=== PATIENT | female | born 1950 | race Caucasian/White ===

== ENCOUNTER 2018-10-15 10:20 | Inpatient (IN) | payer OTHER ==
[~2018-10-15] VITALS: Ht 157.5 cm; Wt 44.5 kg
[2018-10-15 10:31] VITALS: BP 135/67
[2018-10-15 11:20] LABS: BE -2.9 mmol/L (-2 to +3); PO2 81.8 mmHg (75.0-100.0); pH 7.438 (7.340-7.450)
[2018-10-15 11:21] LABS: ABSOLUTE LYMPHOCYTES 0.6 thou/uL (0.8-5.3); ABSOLUTE MONOCYTES 0.9 thou/uL (0.0-1.2); ABSOLUTE NEUTROPHILS 8.7 thou/uL (1.6-8.1); BASOPHILS 0.2 %; EOSINOPHILS 0.1 %; HEMATOCRIT 37.6 % (37.0-47.0); HEMOGLOBIN 12.7 gm/dL (12.0-15.0); LYMPHOCYTES 5.6 %; MCH 31.7 pg (26.0-34.0); MCHC 33.9 g/dL (28.0-37.0); MCV 93.4 fL (80.0-100.0); MONOCYTES 9.1 %; MPV 9.2 fl. (7.2-11.1); NUCLEATED RBCS 0 /100WBC; PLATELET COUNT* 197 thou/uL (150-400); RBC 4.02 mil/uL (4.20-5.00); RDW-CV 14.9 % (10.5-14.5); WBC 10.3 thou/uL (4.0-11.0)
[2018-10-15 11:23] LABS: ANION GAP 12 mmol/L (7-16); BUN 22 mg/dL (7-18); CHLORIDE 99 mmol/L (98-107); CO2 23 mmol/L (21-32); CREATININE 0.8 mg/dL (0.6-1.3); GLUCOSE 109 mg/dL (70-99); POTASSIUM 3.9 mmol/L (3.5-5.1); SODIUM 134 mmol/L (136-145)
[2018-10-15 11:35] LABS: ALKALINE PHOSPHATASE 120 U/L (46-116); NT-PRO BRAIN NAT PEPTIDE 308 pg/mL (<300); SGOT 27 U/L (15-37); SGPT 40 U/L (30-65); TOTAL BILIRUBIN 0.6 mg/dL (<0.1-1.0); TOTAL PROTEIN 7.3 g/dL (6.4-8.2); TROPONIN-I LEVEL <0.06 ng/mL (<0.06)
--- NOTE | 2018-10-15 17:41 | EKG ---
[place] [address] ELECTROCARDIOGRAM REPORT Name: ABDELRAHMAN VARMA Room: [place] [address] ADM IN M.R.#: [id number] Admission: 10/15/18 Attend Phys: Marylou Portillo Discharge: Date of : 48 Report #: [id number] THIS REPORT FOR: //name// [facility] ED Test Date: 2018-10-15 Test Time: 11:20:22 Pat Name: ABDELRAHMAN VARMA Department: Room: [facility] Gender: F Culinary Art Teacher: Florian FOSTER : 1950 Requested By: Cierra Green Order Number: [id number] MD: Zach Kruse Measurements Intervals [place] Rate: 91 P: -18 NC: 102 QRS: 65 QRSD: 86 T: 54 QT: 358 QTc: 441 Interpretive Statements Sinus rhythm Short NC interval No previous ECG available for comparison Electronically Signed On 10-15-2018 17:41:24 CDT by Zach Kruse [email or web address] <ELECTRONICALLY SIGNED> By: Zach Kruse MD, [facility] 10/15/18 1741 1120 1120 Zach Kruse MD, FACC /EPI
[2018-10-15 18:05] VITALS: BP 106/68
[2018-10-15 18:22] VITALS: BP 112/81
--- NOTE | 2018-10-15 19:30 | NUR ---
PATIENT ARRIVED FROM ER THIS EVENING. PATIENT SETTLED TO ROOM. HISTORY, ASSESSMENT AND VITALS COMPLETED AND DOCUMENTED. PATIENT DENIES ANY PAIN. PATIENT DENIES ANY TROUBLE BREATHING AT THIS TIME. OXYGEN IS ON AT 2L/NC. PATIENT DENIES ANY NEEDS AT THIS TIME. CALL LIGHT WITHIN REACH. WILL CONTINUE TO MONITOR.
[2018-10-15 22:00] VITALS: BP 123/63
--- NOTE | 2018-10-16 06:05 | NUR ---
PATIENT SLEPT MOST OF THE NIGHT. IV REMAINS SALINE LOCKED. PATIENT REMAINS ON OXYGEN AT 2L PER NASAL CANNULA. WILL CONTINUE TO MONITOR.
[2018-10-16 08:00] VITALS: BP 95/58
--- NOTE | 2018-10-16 15:06 | NUR ---
PT.PLANS TO DISCHARGE TOMORROW. SHE LIVES ALONE. HAS SUPPORTIVE FAMILY AND FRIENDS. SHE IS INDEPEDENT AT HOME. USES NOT DME AND NO HX OF HH. IS UP AD VERNE[place] AND SHOULD HAVE NO DISCHARGE NEEDS. SEES HER PCP.
[2018-10-16 15:32] VITALS: BP 106/61
--- NOTE | 2018-10-16 17:31 | NUR ---
PATIENT RESTING IN BED. PATIEN TIS UP AD VERNELL IN ROOM. PATIENT DENIES ANY TROUBLE BREATHING AND IS ON ROOM AIR. PATIENT DENIES ANY PAIN. PATIENT HAS GOOD APPETITE. PATIENT DENIES ANY NEEDS AT THIS TIME. CALL LIGHT WITHN REACH. WILL CONTINUE TO MONITOR.
[2018-10-16 21:15] VITALS: BP 103/59
--- NOTE | 2018-10-17 05:06 | NUR ---
PT SLEPT MOST OF SHIFT. ASSESSMENT DOCUMENTED. MEDS GIVEN PER E-MAR. IV PATENT. NO REPORTS OF PAIN OR NAUSEA THIS SHIFT. PT REMAINED ON ROOM AIR. WILL CONTINUE WITH PLAN OF CARE.
[2018-10-17 08:00] VITALS: BP 116/67
[2018-10-17 13:44] VITALS: BP 116/67
[2018-10-17] MEDS ORDERED: CEFDINIR300 MG PO (13:53)
[2018-10-17] MEDS ORDERED: PREDNISONE 10 M10 MG PO (13:54)
--- NOTE | 2018-10-17 14:30 | NUR ---
DISCHARGE NOTE - ALL BELONGINGS SENT WITH PT. RX'S GIVEN. INFORMATION GIVEN. REVIEWED INSTRUCTIONS. NO QUESTIONS. IV REMOVED.
== END 2018-10-17 14:30 | disposition home or self-care (01) | DRG 189 ==
LOC: M.ERS 10:20 → M.ORTHSURG 12:35 → M.TBA-ER 12:35 → M.ORTHSURG 18:12
PROVIDERS: Nurse Practitioner Family; ADMIT Internal Medicine
DX: J96.01 Acute respiratory failure with hypoxia (principal); E44.1 Mild protein-calorie malnutrition; Z68.1 Body mass index [BMI] 19.9 or less, adult; J43.9 Emphysema, unspecified; Z87.891 Personal history of nicotine dependence; Z79.51 Long term (current) use of inhaled steroids; Z79.899 Other long term (current) drug therapy

== ENCOUNTER → 2018-12-02 | Outpatient (CLI) | payer OTHER ==
[~2018-12-02] MED LIST: CEFDINIR300 MG PO; PREDNISONE 10 M10 MG PO
== END ==
LOC: M.ULTRA 10-26 09:09
DX: J43.9 Emphysema, unspecified (principal); K44.9 Diaphragmatic hernia without obstruction or gangrene; I70.0 Atherosclerosis of aorta; I73.9 Peripheral vascular disease, unspecified; R09.89 Other specified symptoms and signs involving the circulatory and respiratory systems; Z87.891 Personal history of nicotine dependence

== ENCOUNTER → 2018-12-09 | Outpatient (CLI) | payer OTHER | LOC: M.RAD 08:22 | DX: Z12.31 Encounter for screening mammogram for malignant neoplasm of breast (principal); M81.0 Age-related osteoporosis without current pathological fracture ==

== ENCOUNTER → 2018-12-29 | Outpatient (CLI) | payer OTHER | LOC: M.PUL 10:45 | DX: J44.9 Chronic obstructive pulmonary disease, unspecified (principal) ==

== ENCOUNTER → 2019-12-13 | Outpatient (CLI) | payer OTHER | LOC: M.RAD 07:52 | PROVIDERS: ATTEND Family Medicine | DX: Z12.31 Encounter for screening mammogram for malignant neoplasm of breast (principal) ==

== ENCOUNTER → 2020-12-12 | Outpatient (CLI) | payer OTHER | LOC: M.RAD 09:08 | PROVIDERS: ATTEND Nurse Practitioner | DX: Z12.31 Encounter for screening mammogram for malignant neoplasm of breast (principal); N64.89 Other specified disorders of breast ==

== ENCOUNTER → 2021-01-08 | Outpatient (CLI) | payer OTHER | LOC: M.RAD 01-02 14:30 | PROVIDERS: ATTEND Nurse Practitioner | DX: Z00.00 Encounter for general adult medical examination without abnormal findings (principal); M85.88 Other specified disorders of bone density and structure, other site; M81.0 Age-related osteoporosis without current pathological fracture; Z87.891 Personal history of nicotine dependence; Z78.0 Asymptomatic menopausal state ==